=== PATIENT | female | born 1990 | race Caucasian/White ===

== ENCOUNTER 2016-12-31 20:02 | Emergency (ER) | payer BC ==
[~2016-12-31] VITALS: Ht 165.1 cm; Wt 63.6 kg
[~2016-12-31 20:02] MED LIST: AMOXICILLIN 8751 TAB PO; DIFLUCAN200 MG PO; DIFLUCAN50 MG; LORTAB 5/500 501 TAB PO; LOTRIMIN1% TP; NORCO 325 MG-51 TAB PO; NORCO 325 MG-7.1 TAB PO; NUVARING VAG RING VG; PERCOCET 5/321 UDTAB PO; PREDNISONE20 MG PO; PROMETHAZINE12.5 M5 PO; ZOFRAN 4MG T4 MG/TAB PO; ZOLOFT 25MG25 MG PO; [UNRECOGNIZED DRUG - REMARK]; bcp
[2016-12-31 20:24] VITALS: BP 106/70; TEMP 98.2
[2016-12-31 21:14] LABS: BASO # 0.1 (0.0-0.2); BASO % 0.8 % (0.0-2.0); EOS # 0.1 (0.0-0.7); EOS % 1.3 % (0-4.0); GRAN # 3.3 (1.4-6.5); GRAN % 41.6 % (42.2-75.2); HEMATOCRIT 38.8 % (37.0-47.0); HEMOGLOBIN 12.6 g/dl (12.5-16.0); LYMPH % 50.3 % (20.0-51.0); MEAN CELL VOLUME 88 fl (80.0-100.0); MEAN CORPUSCULAR HEMOGLOBIN 29 pg (27.0-31.0); MEAN CORPUSCULAR HGB CONC 33 g/dl (33.0-37.0); MEAN PLATELET VOLUME 9.9 fl (7.4-10.4); MONO # 0.5 (0.1-0.6); MONO % 5.9 % (1.7-9.3); PLATELET COUNT 230 K/mm3 (130-400); RED BLOOD COUNT 4.41 M/mm3 (4.10-5.30); REDCELL DISTRIBUTION WIDTH-CV 15.7 % (11.5-14.5); WHITE BLOOD COUNT 7.9 K/mm3 (4.8-10.8)
[2016-12-31 21:18] LABS: PH 6 (5-8); SQUAMOUS EPITHELIAL 0-2 /hpf; URINE APPEARANCE Clear; URINE BACTERIA None Seen /hpf; URINE BILIRUBIN Negative (NEGATIVE); URINE BLOOD Negative (NEGATIVE); URINE COLOR Yellow; URINE GLUCOSE Negative (NEGATIVE); URINE KETONE Negative (NEGATIVE); URINE RBC 0-2 /hpf; URINE UROBILINOGEN Negative (NEGATIVE); URINE WBC 0-2 /hpf
[2016-12-31 21:21] LABS: ADJUSTED CALCIUM 8.8 mg/dL (8.4-10.2); ALANINE AMINOTRANSFERASE 30 U/L (9-52); ALKALINE PHOSPHATASE 69 U/L (50-136); ANION GAP 9 mmol/L (7-16); BILIRUBIN,TOTAL 0.5 mg/dL (0.0-1.0); BLOOD UREA NITROGEN 15 mg/dL (7-17); CALCIUM 8.8 mg/dL (8.4-10.2); CARBON DIOXIDE 28 mmol/L (22-30); CHLORIDE 100 mmol/L (98-107); CREATININE, serum 0.78 mg/dL (0.52-1.25); GLUCOSE 79 mg/dL (74-106); POTASSIUM 4.4 mmol/L (3.4-5.0); SODIUM 137 mmol/L (137-145); TOTAL PROTEIN 6.9 gm/dL (6.4-8.2)
[2016-12-31 21:22] LABS: C-REACTIVE PROTEIN < 0.5 mg/dL (0.0-0.9)
[2016-12-31] MEDS ORDERED: NORCO 325 MG-51 TAB PO (21:32)
[2016-12-31 22:03] VITALS: PULSE 94
== END 2016-12-31 22:03 | disposition home or self-care (01) ==
LOC: COL.ER 20:02
PROVIDERS: Nurse Practitioner
DX: R10.84 Generalized abdominal pain (principal); R29.898 Other symptoms and signs involving the musculoskeletal system; Z87.442 Personal history of urinary calculi
CPT/HCPCS: J1885; J7030

== ENCOUNTER 2017-03-12 22:26 | Emergency (ER) | payer BC ==
[~2017-03-12] VITALS: Ht 165.1 cm; Wt 66.9 kg
[2017-03-12 22:29] VITALS: BP 122/76; TEMP 98.7
[2017-03-12 23:58] VITALS: PULSE 88
== END 2017-03-12 23:59 | disposition home or self-care (01) ==
LOC: COL.ER 22:26
DX: R07.89 Other chest pain (principal); G89.29 Other chronic pain

== ENCOUNTER 2020-08-31 11:56 | Emergency (ER) | payer OTHER ==
[~2020-08-31] VITALS: Ht 165.1 cm; Wt 71.4 kg
[~2020-08-31 11:56] MED LIST changes: +PHENERGAN 25 TA25 MG PO
[2020-08-31 12:01] VITALS: BP 112/61; TEMP 97.9
[2020-08-31 15:34] VITALS: PULSE 88
== END 2020-08-31 15:34 | disposition home or self-care (01) ==
LOC: COL.ER 11:56
DX: O20.0 Threatened abortion (principal); Z3A.00 Weeks of gestation of pregnancy not specified; Z88.2 Allergy status to sulfonamides; Z88.1 Allergy status to other antibiotic agents

== ENCOUNTER 2021-03-12 19:59 | Inpatient (IN) | payer BC ==
[~2021-03-12] VITALS: Ht 167.6 cm; Wt 81.8 kg
[2021-03-12] VITALS (14 sets, daily range): BP systolic 96–145; BP diastolic 61–96; PULSE 63–92; TEMP 98.2
--- NOTE | 2021-03-12 20:15 | NUR ---
2014 [id number] 37 WEEKS TO LR2 WITH C/O CONTRACTIONS STARTING AT 1830 TONIGHT AND SROM AT 1900. EFM ON. SVE WITH POSITIVE AMNIOTRACE AND LARGE AMOUNT AMNIOTIC FLUID NOTED. /-3 POSTERIOR. ADM ASSESSMENT COMPLETED. STATES WAS POSITIVE FOR COVID IN SEPTEMBER 2020.
[2021-03-12] MEDS ORDERED: LEXAPRO 5MG5 MG PO (20:23)
[2021-03-12] MEDS ORDERED: BUSPAR5 MG PO (20:24)
[2021-03-12] MEDS ORDERED: CEPHALEXIN500 M1 PO (20:24)
--- NOTE | 2021-03-12 20:46 | NUR ---
2045 DR ALBA NOTIFIED OF PT. ORDER TO ADMIT RECEIVED.
--- NOTE | 2021-03-12 21:15 | NUR ---
2114 SITTING ON SIDE OF BED FOR EPID PLACEMENT. PICKING UP MATERNAL HR WHILE SITTING UP 2126 SINGE SHOT GIVEN. SEE ANESTHSIA RECORD FOR MORE INFORMATION.
[2021-03-12 21:41] LABS: BASO % 0.4 % (0.0-2.0); EOS % 0.4 % (0-4.0); GRAN # 6.1 (1.4-6.5); HEMOGLOBIN 10.5 g/dl (12.5-16.0); LYMPH # 2.7 (1.2-3.4); MEAN CELL VOLUME 88 fl (80.0-100.0); MEAN CORPUSCULAR HEMOGLOBIN 29 pg (27.0-31.0); MEAN CORPUSCULAR HGB CONC 33 g/dl (33.0-37.0); MEAN PLATELET VOLUME 11.3 fl (7.4-10.4); MONO # 0.6 (0.1-0.6); MONO % 6.6 % (1.7-9.3); PLATELET COUNT 204 K/mm3 (130-400); RED BLOOD COUNT 3.62 M/mm3 (4.10-5.30); REDCELL DISTRIBUTION WIDTH-CV 13.6 % (11.5-14.5)
[2021-03-12 21:55] LABS: HEMATOCRIT 31.8 % (37.0-47.0)
--- NOTE | 2021-03-12 22:40 | NUR ---
2240 RAPID COVID SWAB DONE PER PROTOCOL
[2021-03-13] VITALS (19 sets, daily range): BP systolic 97–136; BP diastolic 58–86; PULSE 64–89; TEMP 97.5–98.4
--- NOTE | 2021-03-13 01:43 | NUR ---
0143 COMPLETE DILITATION. PUSHED ONCE. HEAD +3 STATION. INSTRUCTED NOT TO PUSH 0148 DR ALBA NOTIFIED TO COME FOR DELIVERY. READIED FOR DELIVERY. 0200 DR ALBA HERE. PUSHES WITH CONTRACTIONS 0214 DELIVERY VIABLE FE OVER 1ST DEGREE LAC. IV CONTS TO INFUSE.
--- NOTE | 2021-03-13 04:15 | NUR ---
0415 IV TO INT. EPID CATH DCD. REG DIET TAKEN. 0430 UP TO BR WITH ASSIST. UNABLE TO VOID. PERICARE DONE. TO 215 PER W/C AND ANNA WELL. 0445 TYLENOL ES 1000 MG AND BENADRYL 25MG PO GIVEN. LIGHTS OUT TO SLEEP.
--- NOTE | 2021-03-13 09:50 | NUR ---
Initial visit attempt; Patient out of room, Plumbing Technician left card of congratulations and god's blessings for the of their daughter and information regarding the availability of spiritual care at [facility].
[2021-03-14 07:45] VITALS: BP 110/75; PULSE 70; TEMP 97.5
[2021-03-14] MEDS ORDERED: IBU600 MG PO (08:35)
[2021-03-14 16:30] VITALS: BP 122/73; PULSE 95; TEMP 97.9
--- NOTE | 2021-03-14 18:17 | NUR ---
MOTHER STATES WILL NOT BE ABLE TO GET PRESCRIBED BREASTPUMP FROM [facility] UNTIL WEDNESDAY. THIS RN CALLED NIKO BARRAGAN AND WAS ADVISED THAT [facility] IS OPEN ON WEDNESDAY CRISSY, (03/15) AND MAY BE AN OPTION FOR PATIENT TO GET A PUMP ON DAY OF DISCHARGE. THIS RN SHOWED MOTHER HAND PUMP AND EXPLAINED HOW TO USE.
[2021-03-14 20:00] VITALS: BP 124/75; PULSE 68; TEMP 98.3
[2021-03-15 07:25] VITALS: BP 118/72; PULSE 76; TEMP 98.1
== END 2021-03-15 10:20 | disposition home or self-care (01) | DRG 807 ==
LOC: LDR 19:59 → LDRO 19:59 → LDR 20:50 → OB 03-13 02:31
PROVIDERS: Obstetrics & Gynecology; ADMIT Obstetrics & Gynecology
PROC: 10E0XZZ Delivery of Products of Conception, External Approach (ICD-10-PCS; principal; 2021-03-13)
PROC: 0HQ9XZZ Repair Perineum Skin, External Approach (ICD-10-PCS; 2021-03-13)
DX: O99.344 Other mental disorders complicating childbirth (principal); Z37.0 Single live birth; O70.0 First degree perineal laceration during delivery; F41.9 Anxiety disorder, unspecified; O69.1XX0 Labor and delivery complicated by cord around neck, with compression, not applicable or unspecified; Z20.822 Contact with and (suspected) exposure to COVID-19; Z3A.37 37 weeks gestation of pregnancy
CPT/HCPCS: J1200; J2590; J2795; J7120

== ENCOUNTER → 2021-05-02 | Outpatient (CLI) | payer BC ==
[~2021-05-02] MED LIST changes: +BUSPAR5 MG PO; +CEPHALEXIN500 M1 PO; +IBU600 MG PO; +LEXAPRO 5MG5 MG PO
== END ==
LOC: MC.RAD 08:00
DX: N63.21 Unspecified lump in the left breast, upper outer quadrant (principal)

== ENCOUNTER 2021-10-06 11:57 | Emergency (ER) | payer BC ==
[~2021-10-06] VITALS: Ht 167.6 cm; Wt 76.4 kg
[2021-10-06 12:08] VITALS: TEMP 98.6
[2021-10-06] MEDS ORDERED: BUSPAR5 MG PO (12:23)
[2021-10-06 12:30] LABS: COLLECTION METHOD CLEAN CATCH
[2021-10-06 12:36] LABS: MUCOUS Present (NOT PRESENT); PH 6 (5-8); SQUAMOUS EPITHELIAL 0-2 /hpf (0-10); URINE APPEARANCE Clear (CLEAR/HAZY); URINE BACTERIA None Seen /hpf (NONE SEEN); URINE BILIRUBIN Negative (NEGATIVE); URINE BLOOD 2+ (NEGATIVE); URINE COLOR Yellow (YELLOW); URINE GLUCOSE Negative (NEGATIVE); URINE KETONE Negative (NEGATIVE); URINE LEUKOCYTE ESTERASE Negative (NEGATIVE); URINE NITRATE Negative (NEGATIVE); URINE PROTEIN(semi-quant) Negative (NEGATIVE); URINE RBC 0-2 /hpf (0-2); URINE UROBILINOGEN Negative (NEGATIVE)
[2021-10-06 12:57] LABS: BASO % 0.4 % (0.0-2.0); EOS # 0.1 K/mm3 (0.0-0.7); EOS % 1.2 % (0.0-4.0); GRAN # 3.6 K/mm3 (1.4-6.5); GRAN % 48.9 % (42.2-75.2); HEMATOCRIT 41.1 % (37.0-47.0); HEMOGLOBIN 14.2 g/dl (12.5-16.0); LYMPH # 3.2 K/mm3 (1.2-3.4); LYMPH % 42.6 % (20.0-51.0); MEAN CELL VOLUME 85 fl (80.0-100.0); MEAN CORPUSCULAR HEMOGLOBIN 29 pg (27-31); MEAN CORPUSCULAR HGB CONC 35 g/dl (33.0-37.0); MEAN PLATELET VOLUME 10.4 fl (7.4-10.4); MONO # 0.5 K/mm3 (0.1-0.6); MONO % 6.8 % (1.7-9.3); PLATELET COUNT 241 K/mm3 (130-400); RED BLOOD COUNT 4.85 M/mm3 (4.10-5.30); REDCELL DISTRIBUTION WIDTH-CV 13.4 % (11.5-14.5)
[2021-10-06 13:14] LABS: ALBUMIN 4.1 gm/dL (3.5-5.0); BILIRUBIN,TOTAL 0.2 mg/dL (0.2-1.2); C-REACTIVE PROTEIN 0.11 mg/dL (0.00-0.50); CALCIUM 9.1 mg/dL (8.4-10.2); CREATININE, serum 0.77 mg/dL (0.57-1.11); POTASSIUM 3.7 mmol/L (3.5-4.5)
[2021-10-06] MEDS ORDERED: NORCO 325 MG-51 TAB PO (15:00)
[2021-10-06] MEDS ORDERED: ZOFRAN ODT4 MG PO (15:02)
[2021-10-06 15:45] VITALS: BP 113/72; PULSE 76
== END 2021-10-06 15:47 | disposition home or self-care (01) ==
LOC: COL.ER 11:57
PROVIDERS: Emergency Medicine; Nurse Practitioner
DX: R10.11 Right upper quadrant pain (principal); R11.0 Nausea; F17.210 Nicotine dependence, cigarettes, uncomplicated; Z32.02 Encounter for pregnancy test, result negative
CPT/HCPCS: J1170; J2405; J7030

== ENCOUNTER → 2021-10-17 | Outpatient (CLI) | payer BC ==
[~2021-10-17] MED LIST changes: +ZOFRAN ODT4 MG PO
== END ==
LOC: COL.RAD 08:30
DX: R10.11 Right upper quadrant pain (principal)
CPT/HCPCS: A9537